=== PATIENT | male | born 1960 | race Caucasian/White ===

== ENCOUNTER → 2017-02-07 | Day surgery (SDC) | payer BC ==
[~2017-02-07] MED LIST: INSULIN ASPART 100 UNIT/ML 10ML VIAL. SQ; LIDOCAINE 2% PF Vial for OR 5 ML VIAL.; METOPROLOL TARTRATE 5 MG/5 ML VIAL.; PROPOFOL 40 ML IV
[2017-02-07] MEDS: IV RINGERS,LACTATED 1000ML 1,000 ML IV (09:35)
[2017-02-07 09:57] LABS: POC GLUCOSE 254 mg/dL (70-99)
[2017-02-07] MEDS: INSULIN REGULAR 100 UNIT/ML 10ML VIAL. SQ (10:00)
[2017-02-07 10:48] LABS: POC GLUCOSE 241 mg/dL (70-99)
== END | disposition home or self-care (01) ==
LOC: SURG 08:47
DX: K62.1 Rectal polyp (principal); K64.0 First degree hemorrhoids; K57.30 Diverticulosis of large intestine without perforation or abscess without bleeding; I11.0 Hypertensive heart disease with heart failure; I50.9 Heart failure, unspecified; E78.00 Pure hypercholesterolemia, unspecified; M19.91 Primary osteoarthritis, unspecified site; E11.9 Type 2 diabetes mellitus without complications; F17.200 Nicotine dependence, unspecified, uncomplicated; Z95.1 Presence of aortocoronary bypass graft; Z86.39 Personal history of other endocrine, nutritional and metabolic disease; Z87.39 Personal history of other diseases of the musculoskeletal system and connective tissue; Z88.1 Allergy status to other antibiotic agents
CPT/HCPCS: 45385; 82962; 88305; J1815; J2704; J3490